=== PATIENT | female | born 1955 | race Two or more races ===

== ENCOUNTER 2016-10-04 00:36 | Emergency (ER) | payer SELFPAY ==
[~2016-10-04] VITALS: Ht 152.4 cm; Wt 69.4 kg
[2016-10-04 00:50] VITALS: BP 219/93
--- NOTE | 2016-10-04 02:02 | PHYS DOC ---
Past Medical History Past Medical History: Hypertension, Renal Disease Additional Past Medical Histor: Shingles Past Surgical History: Cholecystectomy, Hysterectomy Alcohol Use: None Drug Use: None Adult General Chief Complaint Chief Complaint: SHINGLES HPI HPI Patient is a 61 year old female who presents with 3 days history of rash to the left side of her lower chest that's a red rash very painful. She says is similar to her previous episode of shingles. Denies any fever chills sweats cough shortness of breath or chest pain. No nausea vomiting or diarrhea. Is only located that one area. Review of Systems Review of Systems Constitutional: Denies fever or chills [] Eyes: Denies change in visual acuity, redness, or eye pain [] HENT: Denies nasal congestion or sore throat [] Respiratory: Denies cough or shortness of breath [] Cardiovascular: No additional information not addressed in HPI [] GI: Denies abdominal pain, nausea, vomiting, bloody stools or diarrhea [] : Denies dysuria or hematuria [] Musculoskeletal: Denies back pain or joint pain [] Integument: Complains of rash to the trunk as mentioned in the history of present illness Neurologic: Denies headache, focal weakness or sensory changes [] Endocrine: Denies polyuria or polydipsia [] Current Medications Current Medications Current Medications Medications (Trade) Dose Ordered Sig/Radha Start Time Stop Time Status Last Admin Dose Admin Oxycodone/ Acetaminophen (Percocet 5/325) 1 tab 1X ONCE 10/04/16 02:15 10/04/16 02:15 DC 10/04/16 02:10 1 TAB Allergies Allergies Allergies Coded Allergies Type Severity Reaction Last Updated Verified codeine Allergy Intermediate 10/04/16 Yes Physical Exam Physical Exam Constitutional: Well developed, well nourished, no acute distress, non-toxic appearance. [] HENT: Normocephalic, atraumatic, bilateral external ears normal, oropharynx moist, no oral exudates, nose normal. [] Eyes: PERRLA, EOMI, conjunctiva normal, no discharge. [] Neck: Normal range of motion, no tenderness, supple, no stridor. [] Cardiovascular:Heart rate regular rhythm, no murmur [] Lungs & Thorax: Bilateral breath sounds clear to auscultation [] Abdomen: Bowel sounds normal, soft, no tenderness, no masses, no pulsatile masses. 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 Back: No tenderness, no CVA tenderness. [] Extremities: No tenderness, no cyanosis, no clubbing, ROM intact, no edema. [] Neurologic: Alert and oriented X 3, normal motor function, normal sensory function, no focal deficits noted. [] Psychologic: Affect normal, judgement normal, mood normal. [] Current Patient Data Vital Signs Vital Signs Date Time Temp Pulse Resp B/P (MAP) Pulse Ox O2 Delivery O2 Flow Rate FiO2 10/04/16 00:50 98.7 66 18 219/93 (135) 95 Room Air 98.7 EKG EKG [] Radiology/Procedures Radiology/Procedures [] Course & Med Decision Making Course & Med Decision Making Pertinent Labs and Imaging studies reviewed. (See chart for details) Patient was placed on antiviral medications and prescribed narcotic pain meds for the pain. [] Dragon Disclaimer Dragon Disclaimer This electronic medical record was generated, in whole or in part, using a voice recognition dictation system. Departure Departure Impression: Primary Impression: Shingles outbreak Disposition: 01 HOME, SELF-CARE Condition: STABLE Referrals: NO PCP (PCP) Scripts Valacyclovir Hcl (VALTREX) 1,000 Mg Tablet 1 TAB PO TID for 7 Days, #21 TAB Prov: YULISSA MAYO MD 10/04/16 Oxycodone/Apap 5-325 (PERCOCET 5-325 MG TABLET) 1 Each Tablet 1-2 TAB PO Q4-6HRS Y for PAIN, #20 TAB Prov: YULISSA MAYO MD 10/04/16 YULISSA MAYO MD October 04, 2016 02:02
[2016-10-04] MEDS ORDERED: VALA10005 PO (02:06)
[2016-10-04] MEDS ORDERED: OXYC-323 PO (02:06)
[2016-10-04] MEDS ORDERED: oxyCODONE/APAP 5/325 1 TAB TABLET PO ONE (02:15)
== END 2016-10-04 02:15 | disposition home or self-care (01) ==
LOC: ER 00:36
DX: B02.9 Zoster without complications (principal); I12.9 Hypertensive chronic kidney disease with stage 1 through stage 4 chronic kidney disease, or unspecified chronic kidney disease; N18.9 Chronic kidney disease, unspecified; Z90.49 Acquired absence of other specified parts of digestive tract; Z88.5 Allergy status to narcotic agent
CPT/HCPCS: 99283